=== PATIENT | male | born 1975 | race Caucasian/White ===

== ENCOUNTER 2022-06-18 09:32 | Emergency (ER) | payer BC ==
[2022-06-18] MEDS ORDERED: KETOROLAC 15 MG/ML 1 ML VIAL IVP STA (10:11)
--- NOTE | 2022-06-18 10:18 | ED ---
Male Urogenital HPI - General Chief complaint: Extremity Injury, Lower Stated complaint: groin pain Time Seen by Provider: 06/18/22 09:58 Source: patient, RN notes reviewed Mode of arrival: ambulatory Limitations: no limitations - History of Present Illness Initial comments: This is a 46-year-old male who presents to the emergency department for left elise in pain. States that his symptoms started yesterday and are radiating into the left knee. Denies any pain or radiation into the scrotum, back, or up into the abdomen. Denies any burning with urination or changes in urinary habits. Denies any nausea or vomiting. He has never had symptoms like this in the past. States that he is unable to get comfortable or sleep due to the pain. Denies any known injuries. Denies any fevers, chills, sore throat, cough, dyspnea, chest pain, palpit ations, abdominal pain, nausea, vomiting, diarrhea, back pain, or headaches. MD Complaint: other (left groin pain) Onset/Timin -: days(s) Location: left inguinal region - Related Data Previous Rx's Medication Instructions Recorded Ibuprofen 800 mg PO Q8H PRN #30 tab 06/18/22 Allergies Allergy/AdvReac Type Severity Reaction Status Date / Time No Known Allergies Allergy Verified 06/18/22 09:41 Review of Systems ROS Statement: Those systems with pertinent positive or pertinent negative responses have been documented in the HPI. ROS Other: All systems not noted in ROS Statement are negative. Past Medical History Past Medical History: No Reported History History of Any Multi-Drug Resistant Organisms: None Reported Past Surgical History: Orthopedic Surgery Past Psychological History: No Psychological Hx Reported Smoking Status: Current some day smoker Past Alcohol Use History: Occasional Past Drug Use History: None Reported General Exam Limitations: no limitations General appearance: alert, in no apparent distress Head exam: Present: atraumatic, normocephalic, normal inspection Respiratory exam: Present: normal lung sounds bilaterally. Absent: respiratory distress, wheezes, rales, rhonchi, stridor Cardiovascular Exam: Present: regular rate, normal rhythm, normal heart sounds. Absent: systolic murmur, diastolic murmur, rubs, gallop, clicks GI/Abdominal exam: Present: soft, normal bowel sounds, other (Mild tenderness to palpation over the left groin. No palpable bulges.). Absent: distended, tenderness, guarding, rebound, rigid Back exam: Present: normal inspection. Absent: CVA tenderness (R), CVA tenderness (L) Neurological exam: Present: alert, oriented X3, CN II-XII intact Psychiatric exam: Present: normal affect, normal mood Skin exam: Present: warm, dry, intact, normal color. Absent: rash Course Vital Signs 06/18/22 06/18/22 09:39 12:38 Temperature 98.1 F 97.8 F Pulse Rate 106 H 88 Respiratory 20 18 Rate Blood Pressure 149/84 122/88 O2 Sat by Pulse 99 98 Oximetry Medical Decision Making - Medical Decision Making This is a 46-year-old male who presents to the emergency department for left groin pain. Lab work reveals leukocytosis and an elevated lactic acid. Urinalysis has no signs of hematuria or infection. The symptoms of groin pain radiating into the knee are not consistent with a ureteral calculus. A groin ultrasound was initially obtained, revealing no acute irregularities. Given the leukocytosis and elevated lactic acid, a computed tomography scan of the pelvis was obtained. This revealed diffuse sclerosis of the iliac bone and sacrum possibly related to sacroiliitis or metastatic bone disease. There was mention of pulmonary metastasis, patient denies any chest pain or shortness of breath. He does smoke on a daily basis. There was also a questionable amount of joint fluid of the inferior left hip. Follow-up MRI of the left hip was recommended. These findings were discussed with the patient and attending ED physician. There is no need for the patient to be admitted and these findings can be followed up on an outpatient basis. It was discussed with the patient the importance of following up with orthopedics for prompt evaluation and additional imaging. He is established with Dr. Cohen and will follow-up with him this week. Rx for ibuprofen 800 mg was provided. Advised to alternate this with Tylenol as needed for pain relief. Return precautions reviewed in depth, the patient is instructed to return to the emergency department with any new, worsening, or concerning symptoms. Patient verbalized understanding. This case was discussed in detail with the attending ED physician. Presentation, findings, and treatment plan discussed in detail as well. - Lab Data Result diagrams: 06/18/22 10:24 06/18/22 10:24 Lab Results 06/18/22 06/18/22 06/18/22 Range/Units 10:24 10:24 10:24 WBC 11.0 H (3.8-10.6) k/uL RBC 4.46 (4.30-5.90) m/uL Hgb 13.3 (13.0-17.5) gm/dL Hct 41.3 (39.0-53.0) % MCV 92.6 (80.0-100.0) fL MCH 29.9 (25.0-35.0) pg MCHC 32.3 (31.0-37.0) g/dL RDW 14.0 (11.5-15.5) % Plt Count 294 (150-450) k/uL MPV 8.6 Neutrophils % 77 % Lymphocytes % 15 % Monocytes % 6 % Eosinophils % 0 % Basophils % 0 % Neutrophils # 8.4 H (1.3-7.7) k/uL Lymphocytes # 1.7 (1.0-4.8) k/uL Monocytes # 0.7 (0-1.0) k/uL Eosinophils # 0.0 (0-0.7) k/uL Basophils # 0.0 (0-0.2) k/uL Sodium 140 (137-145) mmol/L Potassium 4.6 (3.5-5.1) mmol/L Chloride 100 (98-107) mmol/L Carbon Dioxide 27 (22-30) mmol/L Anion Gap 13 mmol/L BUN 14 (9-20) mg/dL Creatinine 0.90 (0.66-1.25) mg/dL Est GFR (CKD-EPI)AfAm >90 (>60 ml/min/1.73 sqM) Est GFR (CKD-EPI)NonAf >90 (>60 ml/min/1.73 sqM) Glucose 155 H (74-99) mg/dL Lactic Ac Sepsis Rflx Plasma Lactic Acid [place] (0.7-2.0) mmol/L Calcium 9.8 (8.4-10.2) mg/dL Total Bilirubin 0.3 (0.2-1.3) mg/dL AST 21 (17-59) U/L ALT 17 (4-49) U/L Alkaline Phosphatase 91 (38-126) U/L Total Protein 7.3 (6.3-8.2) g/dL Albumin 4.4 (3.5-5.0) g/dL Urine Color Light Yellow Urine Appearance Clear (Clear) Urine pH 6.0 (5.0-8.0) Ur Specific [place] 1.007 (1.001-1.035) Urine Protein Negative (Negative) Urine Glucose (UA) 1+ H (Negative) Urine Ketones Negative (Negative) Urine Blood Negative (Negative) Urine Nitrite Negative (Negative) Urine Bilirubin Negative (Negative) Urine Urobilinogen <2.0 (<2.0) mg/dL Ur Leukocyte Esterase Negative (Negative) 06/18/22 06/18/22 Range/Units 10:24 11:22 WBC (3.8-10.6) k/uL RBC (4.30-5.90) m/uL Hgb (13.0-17.5) gm/dL Hct (39.0-53.0) % MCV (80.0-100.0) fL MCH (25.0-35.0) pg MCHC (31.0-37.0) g/dL RDW (11.5-15.5) % Plt Count (150-450) k/uL MPV Neutrophils % % Lymphocytes % % Monocytes % % Eosinophils % % Basophils % % Neutrophils # (1.3-7.7) k/uL Lymphocytes # (1.0-4.8) k/uL Monocytes # (0-1.0) k/uL Eosinophils # (0-0.7) k/uL Basophils # (0-0.2) k/uL Sodium (137-145) mmol/L Potassium (3.5-5.1) mmol/L Chloride (98-107) mmol/L Carbon Dioxide (22-30) mmol/L Anion Gap mmol/L BUN (9-20) mg/dL Creatinine (0.66-1.25) mg/dL Est GFR (CKD-EPI)AfAm (>60 ml/min/1.73 sqM) Est GFR (CKD-EPI)NonAf (>60 ml/min/1.73 sqM) Glucose (74-99) mg/dL Lactic Ac Sepsis Rflx Y Plasma Lactic Acid [place] 2.1 H* (0.7-2.0) mmol/L Calcium (8.4-10.2) mg/dL Total Bilirubin (0.2-1.3) mg/dL AST (17-59) U/L ALT (4-49) U/L Alkaline Phosphatase (38-126) U/L Total Protein (6.3-8.2) g/dL Albumin (3.5-5.0) g/dL Urine Color Urine Appearance (Clear) Urine pH (5.0-8.0) Ur Specific [place] (1.001-1.035) Urine Protein (Negative) Urine Glucose (UA) (Negative) Urine Ketones (Negative) Urine Blood (Negative) Urine Nitrite (Negative) Urine Bilirubin (Negative) Urine Urobilinogen (<2.0) mg/dL Ur Leukocyte Esterase (Negative) - Radiology Data Radiology results: report reviewed, image reviewed Disposition Clinical Impression: Sclerosis of sacroiliac joint, Effusion of hip joint, left Disposition: HOME SELF-CARE Instructions (If sedation given, give patient instructions): Groin Pain (ED) Additional Instructions: Return to the emergency department with any new, worsening, or concerning symptoms. You will need to contact orthopedics as listed on your discharge form for a follow-up. It is recommended that you have a bone scan and an MRI of the left hip. Make sure that the office knows that you had concerning findings on computed tomography scan that need prompt follow-up. Alternate with ibuprofen and Tylenol as needed for pain relief. Prescriptions: Ibuprofen 800 mg PO Q8H PRN #30 tab PRN Reason: Pain Is patient prescribed a controlled substance at d/c from ED?: No Referrals: Angi Schofield MD [Primary Care Provider] - 1-2 days Obinna Cohen MD [STAFF PHYSICIAN] - 1-2 days
[2022-06-18 10:42] LABS: Appearance,Urine Clear (Clear); Basophils % (A) 0 %; Bilirubin,Urine Negative (Negative); Blood,Urine Negative (Negative); Color,Urine Light Yellow; Eosinophils % (A) 0 %; Glucose,Urine (UA) 1+ (Negative); HCT 41.3 % (39.0-53.0); HGB 13.3 gm/dL (13.0-17.5); Ketones,Urine Negative (Negative); Leukocyte Esterase,Urine Negative (Negative); Lymphocytes # (A) 1.7 k/uL (1.0-4.8); Lymphocytes % (A) 15 %; MCH 29.9 pg (25.0-35.0); MCHC 32.3 g/dL (31.0-37.0); MCV 92.6 fL (80.0-100.0); Mean Platelet Volume 8.6; Monocytes # (A) 0.7 k/uL (0-1.0); Monocytes % (A) 6 %; Neutrophils # (A) 8.4 k/uL (1.3-7.7); Neutrophils % (A) 77 %; Nitrite,Urine Negative (Negative); Platelet Count 294 k/uL (150-450); Protein,Urine Negative (Negative); RBC 4.46 m/uL (4.30-5.90); Specific Gravity,Urine 1.007 (1.001-1.035); Urobilinogen,Urine <2.0 mg/dL (<2.0)
--- NOTE | 2022-06-18 10:59 | US ---
EXAMINATION TYPE: US groin LT DATE OF EXAM: 06/18/2022 COMPARISON: NONE CLINICAL HISTORY: groin pain. Left groin pain x 1 day, no injury Multiple grayscale ultrasound images of the left groin were obtained. Valsalva was performed. Soft tissue scan of left groin produces no sonographic imaging of hernia or other focal abnormality. IMPRESSION: No ultrasound evidence of abnormality.
[2022-06-18 11:08] LABS: ALT 17 U/L (4-49); AST 21 U/L (17-59); African American GFR (CKD) >90 (>60 ml/min/1.73 sqM); Albumin 4.4 g/dL (3.5-5.0); Alkaline Phosphatase 91 U/L (38-126); Anion Gap 13 mmol/L; Blood Urea Nitrogen 14 mg/dL (9-20); Calcium 9.8 mg/dL (8.4-10.2); Carbon Dioxide 27 mmol/L (22-30); Chloride 100 mmol/L (98-107); Glucose 155 mg/dL (74-99); Non-African American GFR(CKD) >90 (>60 ml/min/1.73 sqM); Potassium 4.6 mmol/L (3.5-5.1); Sodium 140 mmol/L (137-145); Total Bilirubin 0.3 mg/dL (0.2-1.3); Total Protein 7.3 g/dL (6.3-8.2)
--- NOTE | 2022-06-18 11:49 | CT ---
EXAMINATION TYPE: CT pelvis w con DATE OF EXAM: 06/18/2022 COMPARISON: Ultrasound 06/18/2022 HISTORY: left inguinal pain x2 days CT DLP: 948 mGycm Automated exposure control for dose reduction was used. CONTRAST: CT scan of the abdomen pelvis is performed with IV Contrast, patient injected with 100 mL of Isovue 3 00. FINDINGS- There is marked sclerosis involving the bilateral iliac bones and sacrum. No erosive changes in the S I joint. Arthropathy of the hip joints with small lucent lesions base likely on the basis of herniati on pits. No acute fracture. Visualized bowel gas pattern is nonspecific. Aorta normal caliber. No free fluid or adenopathy as vis ualized. Appendix isn't seen. Bladder only partially distended. Small fat-containing bilateral inguin al hernia. No bowel content. IMPRESSION- 1. There is diffuse sclerosis of the iliac bone and sacrum which could be in the basis of sacroiliiti s. Pulmonary metastasis or metabolic bone disease in the differential diagnosis recommend bone scan. 2. Small fat-containing bilateral inguinal hernia. 3. Question tiny amount joint fluid on the left inferiorly. Recommend follow-up MRI left hip.
[2022-06-18 12:39] VITALS: BP 122/88; PULSE 88; RESP 18; TEMP 97.8
== END 2022-06-18 12:38 | disposition home or self-care (01) ==
LOC: EC 09:32
DX: M46.1 Sacroiliitis, not elsewhere classified (principal); D72.829 Elevated white blood cell count, unspecified; R74.02 Elevation of levels of lactic acid dehydrogenase [LDH]; F17.200 Nicotine dependence, unspecified, uncomplicated
CPT/HCPCS: 99284; 96374; 36415; 80053; 83605; 85025; 81003; 76882; 72193; J1885

== ENCOUNTER → 2022-07-05 | Outpatient (CLI) | payer BC ==
--- NOTE | 2022-07-06 05:37 | CT ---
EXAMINATION TYPE: CT chest w con DATE OF EXAM: 07/05/2022 COMPARISON: NONE at this institution. HISTORY: Pulmonary Nodule CT DLP: 499.2 mGycm. Automated Exposure Control for Dose Reduction was Utilized. TECHNIQUE: CT scan of the thorax is performed following with IV Contrast, patient injected with 100c c mL of Isovue 300. FINDINGS: LUNGS: The lungs are grossly clear, there is no significant greater than 5 mm parenchymal mass or nod ule identified. No suspicious focal consolidation. There is no pleural effusion or pneumothorax see n. The tracheobronchial tree is patent. MEDIASTINUM: There are no greater than 1 cm hilar or mediastinal lymph nodes. No cardiomegaly or pe ricardial effusion is seen. Main pulmonary artery measures 2.9 cm in diameter. Adjacent aorta measur es 3.5 cm in diameter. OTHER: Contracted gallbladder is present. IMPRESSION: No suspicious pulmonary nodules or masses. No acute pulmonary process.
== END | disposition home or self-care (01) ==
LOC: RADCTMAIN 18:38
PROVIDERS: ATTEND Internal Medicine
DX: R91.1 Solitary pulmonary nodule (principal)
CPT/HCPCS: 71260; Q9967

== ENCOUNTER → 2024-08-25 | Day surgery (SDC) | payer BC ==
[2024-08-21 15:30] VITALS: BMI 27.8
[~2024-08-25] MED LIST: PROPOFOL 10 MG/ML 20 ML VIAL IV ONE
[2024-08-25 10:01] VITALS: TEMP 97
[2024-08-25] MEDS: LACTATED RINGERS 1,000 ML BAG IV STA (10:04)
[2024-08-25] MEDS: IV FLUID CONTINUATION 1,000 ML IV ONE (10:04)
--- NOTE | 2024-08-25 10:43 | P.GSHP ---
History of Present Illness H&P Date: 08/25/24 Chief Complaint: Colon cancer screening 48-year-old male here for colonoscopy. He has not had 1 previously. No bowel complaints. Questionable family history of colon cancer in his mother. Past Medical History Past Medical History: Hyperlipidemia History of Any Multi-Drug Resistant Organisms: None Reported Past Surgical History: Orthopedic Surgery Past Anesthesia/Blood Transfusion Reactions: No Reported Reaction Smoking Status: Current some day smoker - Past Family History Mother Family Medical History: Cancer Additional Family Medical History / Comment(s): colon CA possible Sister(s) Family Medical History: Cancer Additional Family Medical History / Comment(s): breast Medications and Allergies Home Medications Medication Instructions Recorded Confirmed Type Rosuvastatin Calcium 10 mg PO DAILY 08/21/24 08/25/24 History Allergies Allergy/AdvReac Type Severity Reaction Status Date / Time No Known Allergies Allergy Verified 08/25/24 09:51 Surgical - Exam Vital Signs Temp Pulse Resp BP Pulse Ox 97 F L 94 14 125/74 97 08/25/24 10:00 08/25/24 10:00 08/25/24 10:00 08/25/24 10:00 08/25/24 10:00 Physical exam: General: Well-developed, well-nourished HEENT: Normocephalic, sclerae nonicteric Abdomen: Nontender, nondistended Extremities: No edema Neuro: Alert and oriented Assessment and Plan (1) Colon cancer screening Narrative/Plan: Will proceed with colonoscopy at this time. Current Visit: Yes Status: Acute Code(s): Z12.11 - ENCOUNTER FOR SCREENING FOR MALIGNANT NEOPLASM OF COLON SNOMED Code(s): 186696077
--- NOTE | 2024-08-25 11:00 | P.PCN ---
Date of Procedure: 08/25/24 Procedure(s) Performed: PREOPERATIVE DIAGNOSIS: Colon cancer screening POSTOPERATIVE DIAGNOSIS: Ascending colon polyp, sigmoid polyp, rectal polyp PROCEDURE: Colonoscopy with snare polypectomy ANESTHESIA: MAC SURGEON: Tavares Sin M.D. SPECIMENS: Polyps ENDOSCOPIC PROCEDURE: The patient was placed on the endoscopy table in the left decubitus position. The Olympus colonoscope was inserted into the anus and passed under direct visualization to the base of the cecum. The appendiceal orifice was visualized. From that point the scope was slowly withdrawn inspecting all surfaces carefully. There were no neoplastic inflammatory or polypoid lesions throughout the cecum, ascending and transverse colon. In the descending colon a small polyp was seen and removed using the snare with cautery technique. Another similar polyp in the sigmoid colon was removed in a similar fashion. Another similar polyp in the proximal rectum was removed in a similar fashion. There was mild diverticulosis. Digital rectal examination was normal. The patient was taken to the recovery room in stable condition per anesthesia guidelines. RECOMMENDATIONS: Await biopsy results. Repeat colonoscopy pending pathology findings.
[2024-08-25 11:19] VITALS: BP 116/77; PULSE 78; RESP 16
== END | disposition home or self-care (01) ==
LOC: ORWHC2ENDO 09:18
PROVIDERS: ATTEND Surgery
DX: Z12.11 Encounter for screening for malignant neoplasm of colon (principal); D12.4 Benign neoplasm of descending colon; D12.5 Benign neoplasm of sigmoid colon; D12.8 Benign neoplasm of rectum; K57.30 Diverticulosis of large intestine without perforation or abscess without bleeding; E78.5 Hyperlipidemia, unspecified; F17.290 Nicotine dependence, other tobacco product, uncomplicated; Z79.899 Other long term (current) drug therapy; Z98.890 Other specified postprocedural states
CPT/HCPCS: 88305; 45385; J2704